=== PATIENT | male | born 1985 ===

== ENCOUNTER 2019-09-22 12:47 | Emergency (ER) | payer OTHER ==
--- NOTE | 2019-09-22 14:41 | UC ---
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 He has been hot compressing the area and using ibuprofen regularly for relief of pain, but continues to be in a signiicant amount of pain. - History of Current Complaint Chief Complaint: UCSkin Time Seen by Provider: 09/22/19 14:39 Stated Complaint: SOFT TISSUE Hx Obtained From: Patient Onset/Duration: Sudden Onset, Lasting Days - 2 Skin Exposure Onset/Duration: Days Ago - 2 Onset Severity: Mild Current Severity: Moderate Pain Intensity: 5 Location: Discrete - sacrall area Aggravating Factor(s): Clothing, Touch Alleviating Factor(s): Heat, OTC Meds Associated Signs & Symptoms: Positive: Weakness - feels unwell with increased heart rate noted - Allergy/Home Medications Allergies/Adverse Reactions: Allergies Allergy/AdvReac Type Severity Reaction Status Date / Time many meds - has G6PD AdvReac has to Uncoded 09/22/19 14:34 deficiency avoid certain medications d/t G6PD deficiency Home Medications: Home Medications Ibuprofen TAB* [Advil TAB*] 200 mg PO Q6H PRN 09/22/19 [History Confirmed ] PMH/Surg Hx/FS Hx/Imm Hx - Additional Past Medical History Additional PMH: G6PD deficiency Previously Healthy: Yes - Surgical History Surgical History: None - Family History Known Family History: Positive: Non-Contributory - Social History Occupation: Student Lives: With Family Alcohol Use: None Substance Use Type: None Smoking Status (MU): Never Smoked Tobacco Review of Systems All Other Systems Reviewed And Are Negative: Yes Constitutional: Positive: Fatigue Skin: Positive: Negative Eyes: Positive: Negative ENT: Positive: Negative Respiratory: Positive: Negative Cardiovascular: Positive: Other - no previous hx of tachycardia. Gastrointestinal: Positive: Negative Genitourinary: Positive: Negative Motor: Positive: Negative Neurovascular: Positive: Negative Musculoskeletal: Positive: Negative Neurological: Positive: Negative Psychological: Positive: Negative Is Patient Immunocompromised?: No Physical Exam Triage Information Reviewed: Yes Appearance: Well-Appearing, Pain Distress - moderate. In pain, unable to sit due to location of abscess. Vital Signs: Initial Vital Signs Temp 97.7 F 09/22/19 14:28 Pulse 137 09/22/19 14:28 Resp 16 09/22/19 14:28 BP 108/77 09/22/19 14:28 Pulse Ox 98 09/22/19 14:28 Vital Signs Reviewed: Yes ENT: Positive: Normal ENT inspection Respiratory: Positive: Lungs clear, Normal breath sounds Cardiovascular: Positive: RRR, No Murmur Musculoskeletal Exam: Normal Neurological Exam: Normal Psychological Exam: Normal Skin Exam: Other - 6 x 5 cm area of induration over coccyx, draining sero- sanguinous material. Procedures - Sedation Patient Received Moderate/Deep Sedation with Procedure: No - Obtained verbal consent to proceed with I+D of pilonidal abscess. - Incision and Drainage Gluteal Fold Anesthesia: Local, Lidocaine - 4 cc of lidocaine 2% Instrument(s): Scalpel Packing: Gauze - 5 cm Course/Dx - Course Course Of Treatment: Verbal consent given to proceed with I+D of abscess. I reviewed the case with Dr. Ramirez prior to proceeding, with advice to drain as best as possible with follow up with [facility] on Wednesday, with antibiotic coverage. Will treat with cephalexin although trimethoprim sulphamethoxazole could be added to the regimen if culture returns positive for MRSA. Culture obtained and submitted. Advised to increase dose of ibuprofen for control of pain. - Differential Diagnoses - Skin Complaint Differential Diagnoses: Abscess, Cellulitis - Diagnoses Provider Diagnosis: Pilonidal abscess - Physician Notification/Consults Discussed Patient Care With: Jannet Ramirez Time Discussed With Above Provider: 15:30 - discussed need for I+D and antibiotic coverage. Discharge ED - Sign-Out/Discharge Documenting (check all that apply): Patient Departure All imaging exams completed and their final reports reviewed: No Studies - Discharge Plan Condition: Stable Disposition: HOME Prescriptions: cephALEXin [Keflex] 500 mg PO TID #21 capsule Patient Education Materials: Pilonidal Cyst (ED) Referrals: Harleen Swann MD [Primary Care Provider] - Jannet Ramirez MD [Medical Doctor] - Additional Instructions: You have had drainage of pilondal abscess, with recommendation to follow up with [facility] on Wednesday. Please call their office first thing Wednesday. Please begin antibiotics to treat infection. A culture has been sent, and if the results confirm a need for additional treatment with antibiotics you will receive a call. Increase ibuprofen to 600mg every 6 hours for relief of pain If the packing falls out, that is ok. You can continue to use warm packs over the area. - Billing Disposition and Condition Condition: STABLE Disposition: Home
[2019-09-22] MEDS ORDERED: Lidocaine 2% PF * 5 ML VIAL INJ ONE (15:08)
[2019-09-22] MEDS ORDERED: HYDROcodone/ACETAMIN 5-325 MG* 1 TAB PO ONE (15:13)
--- NOTE | 2019-09-24 15:53 | UC ---
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 On keflex, no change currently. -Michelle Fatima PAC Course/Dx - Diagnoses Provider Diagnoses: Pilonidal abscess - Provider Notifications Time Discussed With Above Provider: 15:30 - discussed need for I+D and antibiotic coverage. Discharge ED - Sign-Out/Discharge Documenting (check all that apply): Patient Departure All imaging exams completed and their final reports reviewed: No Studies - Discharge Plan Condition: Stable Disposition: HOME Prescriptions: cephALEXin [Keflex] 500 mg PO TID #21 capsule Patient Education Materials: Pilonidal Cyst (ED) Referrals: Harleen Swann MD [Primary Care Provider] - Jannet Ramirez MD [Medical Doctor] - Additional Instructions: You have had drainage of pilondal abscess, with recommendation to follow up with [facility] on Wednesday. Please call their office first thing Wednesday. Please begin antibiotics to treat infection. A culture has been sent, and if the results confirm a need for additional treatment with antibiotics you will receive a call. Increase ibuprofen to 600mg every 6 hours for relief of pain If the packing falls out, that is ok. You can continue to use warm packs over the area. - Billing Disposition and Condition Condition: STABLE Disposition: Home
== END 2019-09-22 16:44 | disposition home or self-care (01) ==
LOC: UCEAST 12:47
DX: L05.01 Pilonidal cyst with abscess (principal); R53.83 Other fatigue; Z88.8 Allergy status to other drugs, medicaments and biological substances
CPT/HCPCS: 10080; 87070; 87077; 87205; 87640; 87641; 93005; 99202; G0463

== ENCOUNTER 2019-12-16 13:20 | Emergency (ER) | payer OTHER ==
--- NOTE | 2019-12-16 13:32 | UC ---
Skin Complaint HPI - HPI Summary HPI Summary: patient notices a skin irritation between buttock cheeked proximally worsening over past 3 days---he has been cleaning with peroxide and a "drawing salve" tissue is eroded with 3 small ulcerations and top layer of dry skin sloth - History of Current Complaint Chief Complaint: UCGU Time Seen by Provider: 12/16/19 13:24 Stated Complaint: BACK PAIN Hx Obtained From: Patient Onset/Duration: Sudden Onset, Lasting Days - 3 Timing: Constant Onset Severity: Mild Current Severity: Moderate Pain Intensity: 2 Pain Scale Used: 0-10 Numeric Location: Discrete Character: Redness Aggravating Factor(s): Nothing Alleviating Factor(s): Nothing - Allergy/Home Medications Allergies/Adverse Reactions: Allergies Allergy/AdvReac Type Severity Reaction Status Date / Time many meds - has G6PD AdvReac has to Uncoded 09/22/19 14:34 deficiency avoid certain medications d/t G6PD deficiency Home Medications: Home Medications Mupirocin 2% CREAM* [Bactroban 2% CREAM*] 1 applic TOPICAL TID #1 tube 12/16/19 [Rx] PMH/Surg Hx/FS Hx/Imm Hx Previously Healthy: Yes - Surgical History Surgical History: None - Family History Known Family History: Positive: Non-Contributory - Social History Occupation: Student Lives: With Family Alcohol Use: None Substance Use Type: None Smoking Status (MU): Never Smoked Tobacco Review of Systems All Other Systems Reviewed And Are Negative: Yes Constitutional: Positive: Negative Skin: Positive: Bruising, Other - irratation 3 inch dismeter with 2 slightly less than dime size ulcerations Eyes: Positive: Negative ENT: Positive: Negative Respiratory: Positive: Negative Cardiovascular: Positive: Negative Gastrointestinal: Positive: Negative Genitourinary: Positive: Negative Motor: Positive: Negative Neurovascular: Positive: Negative Musculoskeletal: Positive: Negative Neurological/Mental Status: Positive: Negative Psychological: Positive: Negative Is Patient Immunocompromised?: No Physical Exam Triage Information Reviewed: Yes Appearance: Well-Appearing, No Pain Distress, Well-Nourished Vital Signs: Initial Vital Signs Temp 97.4 F 12/16/19 13:27 Pulse 77 12/16/19 13:27 Resp 16 12/16/19 13:27 BP 105/69 12/16/19 13:27 Pulse Ox 98 12/16/19 13:27 Vital Signs Reviewed: Yes Eye Exam: Normal Eyes: Positive: Conjunctiva Clear ENT Exam: Normal ENT: Positive: Normal ENT inspection, Hearing grossly normal. Negative: Trismus , Muffled voice, Hoarse voice Dental Exam: Normal Neck exam: Normal Neck: Positive: Supple, Nontender Respiratory Exam: Normal Respiratory: Positive: Chest non-tender, No respiratory distress, No accessory muscle use Cardiovascular Exam: Normal Cardiovascular: Positive: RRR, Pulses Normal, Brisk Capillary Refill Musculoskeletal Exam: Normal Musculoskeletal: Positive: Strength Intact, ROM Intact, No Edema Neurological Exam: Normal Neurological: Positive: Alert, Muscle Tone Normal Psychological Exam: Normal Skin: Positive: Other - 3 inch x 1.5 inch area of skin excoriation with dry tissue sloth---arounding tissue appears bruised, 3 small ulceration no drainage no evidence of abscess Course/Dx - Course Course Of Treatment: Reviewed case with Dr. Monreal will send viral and bacterial cultures-will suggest wash with mild soap and water only and bactroban recheck at [facility] later this week - Diagnoses Provider Diagnosis: Wound infection Discharge ED - Sign-Out/Discharge Documenting (check all that apply): Patient Departure All imaging exams completed and their final reports reviewed: No Studies - Discharge Plan Condition: Stable Disposition: HOME Prescriptions: Mupirocin 2% CREAM* [Bactroban 2% CREAM*] 1 applic TOPICAL TID #1 tube Patient Education Materials: Acute Wound Care (ED) Referrals: [facility] [Outside] - 5 Days Additional Instructions: Mild soap and water wash and bactroban ointment only! - Billing Disposition and Condition Condition: STABLE Disposition: Home - Attestation Statements Provider Attestation: Chart reviewed LIANE
--- NOTE | 2019-12-18 16:54 | UC ---
- Progress Note Progress Note: Please call to see if improving. May continue bactroban ointment, however cultures were negative. -Michelle Fatima Course/Dx - Diagnoses Provider Diagnoses: Wound infection Discharge ED - Sign-Out/Discharge Documenting (check all that apply): Patient Departure All imaging exams completed and their final reports reviewed: No Studies - Discharge Plan Condition: Stable Disposition: HOME Prescriptions: Mupirocin 2% CREAM* [Bactroban 2% CREAM*] 1 applic TOPICAL TID #1 tube Patient Education Materials: Acute Wound Care (ED) Referrals: [facility] [Outside] - 5 Days Additional Instructions: Mild soap and water wash and bactroban ointment only! - Billing Disposition and Condition Condition: STABLE Disposition: Home
[2019-12-19 19:50] LABS: Herpes Source BUTTOCK
== END 2019-12-16 14:20 | disposition home or self-care (01) ==
LOC: UCEAST 13:20
DX: S30.91XA Unspecified superficial injury of lower back and pelvis, initial encounter (principal); Z88.8 Allergy status to other drugs, medicaments and biological substances; X58.XXXA Exposure to other specified factors, initial encounter; Y92.9 Unspecified place or not applicable
CPT/HCPCS: 87070; 87205; 87529; 99212; G0463